=== PATIENT | male | born 1990 | race African-American/Black ===

== ENCOUNTER 2016-07-09 22:38 | Emergency (ER) | payer SELFPAY ==
[~2016-07-09] VITALS: Ht 172.7 cm; Wt 69.0 kg
[2016-07-10] MEDS ORDERED: KETOROLAC 60MG/2ML VIAL IM ONE (03:00)
[2016-07-10 04:25] VITALS: BP 120/81
== END 2016-07-10 05:09 | disposition home or self-care (01) ==
LOC: ER 23:38
DX: S93.602A Unspecified sprain of left foot, initial encounter (principal); F17.210 Nicotine dependence, cigarettes, uncomplicated; W01.0XXA Fall on same level from slipping, tripping and stumbling without subsequent striking against object, initial encounter; Y93.67 Activity, basketball; Y92.838 Other recreation area as the place of occurrence of the external cause
CPT/HCPCS: 73630; 96372; 99284; J1885